=== PATIENT | male | born 1990 | race Caucasian/White ===

== ENCOUNTER 2018-06-08 12:22 | Emergency (ER) | payer OTHER ==
[2018-06-08 12:30] VITALS: BP 129/84
--- NOTE | 2018-06-08 12:50 | EDM.PDOC ---
ED HPI GENERAL MEDICAL PROBLEM - General Chief Complaint: Neck Problem Stated Complaint: neck/shoulder pain Time Seen by Provider: 06/08/18 12:35 Source of Information: Reports: Old Records ([facility] EMR. No paper hospital chart available.), Other ([facility]- first report of injury form) - History of Present Illness INITIAL COMMENTS - FREE TEXT/NARRATIVE: The patient was brought to the emergency room via private automobile by his friend and coworker for evaluation of persistent and somewhat progressive left neck pain with radiation to his left shoulder after a Workmen's Compensation injury, which occurred at about 10:30 a.m. on 05/29/18. Note that the patient was standing on a ladder when he was pulling on a chain pulling it off a track when he felt a strain to his left neck with radiation to his left shoulder. No history of fall from the ladder or other injury at that time. Patient was not evaluated by a physician until this visit, although he did have an appointment with his chiropractor, Raúl Flores in [place], on 05/30 with no apparent x-rays, manipulations, all prescribed medications at that time. Symptoms did improve somewhat initially, however the patient has not been to work since the above injury with no history of injury, etc. He does have some additional mild left arm and hand weakness and paresthesias his fingers with symptoms refractory to OTC Tylenol with last dose of thousand milligrams yesterday evening. He has been using ice packs but no other therapy to this point. He denies any previous history of neck injury or neck complaints. No history of recent headaches, visual changes, diplopia, change in mental status, or other change in neurological status. The patient denies any chest pain/pressure, heart flutter, dizziness, orthostasis, orthopnea, diaphoresis, paresthesias, recent decreased exercise tolerance, or any other anginal-type symptoms. No recent history of abdominal pain, heartburn, nausea, diarrhea, melena, gross hematochezia, or any food intolerance, including fatty foods, etc.. The patient also denies any recent fever, cough, wheezing, dyspnea, etc.. He currently rates his pain at 7/ 10 with symptoms exacerbated by neck movement, cough, etc. Onset: Sudden Onset Date: 06/05/18 Onset Time: 10:30 Duration: Constant, Getting Worse Location: Reports: Neck, Upper Extremity, Left (As above), Radiates to (As above ) Quality: Reports: Sharp Severity: Moderate Improves with: Reports: Rest Worsens with: Reports: Movement Context: Reports: Other (As above) Associated Symptoms: Denies: Confusion, Chest Pain, Cough, Diaphoresis, Fever/ Chills, Headaches, Loss of Appetite, Malaise, Nausea/Vomiting, Seizure, Shortness of Breath, Syncope, Weakness Treatments DAYCARE PROVIDER: Reports: Acetaminophen, Cold Therapy, NSAIDS (Not recently) Neck Pain Score (Numeric/FACES): 7 - Related Data Allergies Allergy/AdvReac Type Severity Reaction Status Date / Time cefaclor [Cefaclor] Allergy UNKNOWN Verified 06/08/18 12:30 Penicillins Allergy UNKNOWN Verified 06/08/18 12:30 Home Meds: Home Meds Fexofenadine [Felicity] 1 tab PO ASDIRECTED PRN 04/26/16 [History] Cyclobenzaprine [Flexeril] 10 mg PO TID PRN #30 tab 06/08/18 [Rx] Past Medical History HEENT History: Reports: Allergic Rhinitis Cardiovascular History: Reports: None Respiratory History: Reports: None Gastrointestinal History: Reports: None Genitourinary History: Reports: None Musculoskeletal History: Reports: Arthritis, Back Pain, Chronic. Denies: Fracture, Gout, Neck Pain, Chronic, RA, SLE Neurological History: Reports: None Psychiatric History: Reports: None Endocrine/Metabolic History: Reports: None Hematologic History: Reports: None Immunologic History: Reports: None Oncologic (Cancer) History: Reports: None Dermatologic History: Reports: None - Infectious Disease History Infectious Disease History: Reports: None - Past Surgical History HEENT Surgical History: Reports: None. Denies: Eye Surgery, Laser Surgery, LASIK, Myringotomy w Tube(s), Naso-Sinus Surgery, Oral Surgery GI Surgical History: Reports: None. Denies: Appendectomy Female Surgical History: Reports: None Male Surgical History: Reports: Circumcision, Other (See Below). Denies: Vasectomy Other Male Surgeries/Procedures: Circumcision as an infant. Social & Family History - Family History Family Medical History: Noncontributory - Tobacco Use Smoking Status *Q: Current Every Day Smoker Tobacco Use Within Last Twelve Months: Cigarettes Years of Tobacco use: 13 Packs/Tins Daily: 1 Used Tobacco, but Quit: No Second Hand Smoke Exposure: No Second Hand Smoke Education Provided: No - Caffeine Use Caffeine Use: Reports: Energy Drinks (2 cans per month), Soda (2 20 ounce bottles per day). Denies: Coffee, Tea - Alcohol Use Alcohol Use History: Yes Days Per Week of Alcohol Use: 0 Number of Drinks Per Day: 2 Number of Drinks Per Day Comment: Usually beer about once per month. No previous DWIs, problems with alcohol abuse, etc. Total Drinks Per Week: 0 Alcohol Use in Last Twelve Months: Yes Alcohol Use Frequency: Rarely - Recreational Drug Use Recreational Drug Use: No Drug Use in Last 12 Months: No Recreational Drug Type: Denies: Amphetamines (Speed), Cocaine, Heroin, Inhalants (Glues, Solvents, Aerosols), LSD (Acid), Marijuana/Hashish, Methamphetamine, Morphine, Oxycodone - Living Situation & Occupation Living situation: Reports: (2018, no children), with Family () Occupation: Employed ([employer]) ED ROS GENERAL - Review of Systems Review Of Systems: ROS reveals no pertinent complaints other than HPI. ED EXAM, GENERAL - Physical Exam Exam: See Below Exam Limited By: No Limitations General Appearance: Alert, WD/WN, No Apparent Distress Head: Atraumatic, Normocephalic. No: Facial Swelling, Facial Tenderness, Sinus Tenderness Neck: Limited Range of Motion (Secondary to left-sided muscle spasms with mild localized palpation pain), Tender Lateral (As above). No: Lymphadenopathy (L), Lymphadenopathy (R), Tender Midline, Thyromegaly Respiratory/Chest: No Respiratory Distress, Lungs Clear, Normal Breath Sounds, No Accessory Muscle Use, Chest Non-Tender. No: Pleural Rub, Retractions Cardiovascular: Normal Peripheral Pulses, Regular Rate, Rhythm, No Edema, No Gallop, No JVD, No Murmur, No Rub. No: Gallop/S3, Gallop/S4, Friction Rub Peripheral Pulses: 2+: Radial (L), Radial (R) GI/Abdominal: Normal Bowel Sounds, Soft, Non-Tender, No Organomegaly, No Distention, No Abnormal Bruit, No Mass. No: Pelvis Stable, Guarding (Male) Exam: Deferred Rectal (Males) Exam: Deferred Back Exam: Normal Inspection, Full Range of Motion. No: CVA Tenderness (L), CVA Tenderness (R), Muscle Spasm Extremities: Normal Inspection, Normal Range of Motion, Non-Tender, No Pedal Edema, Normal Capillary Refill. No: Rsuty's Sign Neurological: Alert, Oriented, CN II-XII Intact, Normal Cognition, Normal Gait, Other (No true left arm weakness with borderline questionable finger weakness of all of his left fingers based on finger thumb test) Psychiatric: Normal Affect, Normal Mood Skin Exam: Tattoo(s) (Multiple). No: Diaphoretic, Wound/Incision Lymphatic: No Adenopathy Course - Vital Signs Last Recorded V/S: Last Vital Signs Temp 36.5 C 06/08/18 12:22 Pulse 100 06/08/18 12:22 Resp 20 06/08/18 12:22 BP 129/84 06/08/18 12:22 Pulse Ox 97 06/08/18 12:22 Vital Signs - 24 hr 06/08/18 12:22 Temperature [ 36.5 C Oral] Pulse, 100 Peripheral [ Right Pulse Oximetry] Respiratory 20 Rate Blood Pressure 129/84 [Right Upper Arm] O2 Sat by Pulse 97 Oximetry - Orders/Labs/Meds Orders: Active Orders 24 hr Category Date Time Status Cervical Spine w Flex and Ext [CR] Stat Exams 06/08/18 12:51 Taken Obtain Past Medical Record [OM.PC] Routine Oth 06/08/18 12:50 Active Labs: None Meds: None - Radiology Interpretation Free Text/Narrative:: X-rays of the cervical spine, complete including flexion and extension views, shows evidence of moderate decreased cervical lordosis but no significant arthritic changes, subluxation, fracture, etc. Note some suboptimal views with extension Departure - Departure Time of Disposition: 13:20 Disposition: Home, Self-Care 01 Condition: Good Clinical Impression: Neck pain Osteoarthritis Qualifiers: Osteoarthritis location: multiple joints Osteoarthritis type: primary Qualified Code(s): M15.0 - Primary generalized (osteo)arthritis Allergic rhinitis Qualifiers: Allergic rhinitis trigger: unspecified Allergic rhinitis seasonality: unspecified Qualified Code(s): J30.9 - Allergic rhinitis, unspecified - Discharge Information *PRESCRIPTION DRUG MONITORING PROGRAM REVIEWED*: Not Applicable *COPY OF PRESCRIPTION DRUG MONITORING REPORT IN PATIENT MERVAT: Not Applicable Prescriptions: Cyclobenzaprine [Flexeril] 10 mg PO TID PRN #30 tab PRN Reason: Muscle Spasm Instructions: Cervical Sprain, [id number] Referrals: PCP,Unknown [Ordering Only Provider] - Forms: ED Department Discharge, ED Return to Work/School Form Additional Instructions: 1. Followup with your regular provider in 2 days as directed. Possible revision of work excuse at that time. Bring these discharge instructions with you to that visit. 2. Tylenol 650 mg by mouth every 4 hours and/or OTC ibuprofen 2-3 tabs by mouth every 6 hours with food as directed./needed. 3. BenGay or equivalent, heating pad, and/or ice packs as directed. 4. Immediately after this visit verify that your cellular telephone's voicemail has been activated and is empty. Also verify that your home telephone 's answering machine is operating properly and has space to receive messages. Note that it is sometimes necessary for us to be able to contact you at a later date to discuss your medical care. 5. Work excuse- See Form 6. Stop all tobacco use ANGELA as directed/per provided information and consider contacting [employer]uit [employer]ne, etc.. 7. You may go to your chiropractic appointments as scheduled. 8. Discontinue all energy drinks ANGELA as discussed. - Problem List & Annotations (1) Neck pain SNOMED Code(s): 63766709 Code(s): M54.2 - CERVICALGIA Status: Acute Priority: High Onset Date: 06/05/18 Annotation/Comment:: Workmen's Compensation forms and work excuse were completed with initial [employer] first injury report of injury also reviewed today. Close follow-up with regular provider as per discharge instructions with symptomatic relief for now. He apparently was provided a work excuse by his chiropractor with this work excuse extended until his recommended follow-up with his regular provider in 2 days. Note additional Flexeril therapy with sedation, etc. precautions given. Consider CT scan of the cervical spine in the next 10-14 days depending on his clinical course. (2) Osteoarthritis SNOMED Code(s): 919774025 Code(s): M19.90 - UNSPECIFIED OSTEOARTHRITIS, UNSPECIFIED SITE Status: Chronic Priority: Medium Annotation/Comment:: History of distant low back pain with arthritis otherwise stable Qualifiers: Osteoarthritis location: multiple joints Osteoarthritis type: primary Qualified Code(s): M15.0 - Primary generalized (osteo)arthritis (3) Allergic rhinitis SNOMED Code(s): 05216655 Code(s): J30.9 - ALLERGIC RHINITIS, UNSPECIFIED Status: Chronic Priority : Medium Annotation/Comment:: Stable by history Qualifiers: Allergic rhinitis trigger: unspecified Allergic rhinitis seasonality: unspecified Qualified Code(s): J30.9 - Allergic rhinitis, unspecified - Problem List Review Problem List Initiated/Reviewed/Updated: Yes - My Orders Last 24 Hours: My Active Orders 06/08/18 12:50 Obtain Past Medical Record [OM.PC] Routine 06/08/18 12:51 Cervical Spine w Flex and Ext [CR] Stat - Assessment/Plan Last 24 Hours: My Active Orders 06/08/18 12:50 Obtain Past Medical Record [OM.PC] Routine 06/08/18 12:51 Cervical Spine w Flex and Ext [CR] Stat Assessment:: As above Plan: As above
== END 2018-06-08 13:20 | disposition home or self-care (01) ==
LOC: LL.ED 12:22
DX: M15.0 Primary generalized (osteo)arthritis (principal); M54.2 Cervicalgia; J30.9 Allergic rhinitis, unspecified; F17.210 Nicotine dependence, cigarettes, uncomplicated; Z71.6 Tobacco abuse counseling
CPT/HCPCS: 72052; 99283

== ENCOUNTER 2018-12-16 07:31 | Emergency (ER) | payer BC ==
[2018-12-16 07:36] VITALS: BP 127/86
[2018-12-16] MEDS ORDERED: Tetracaine HCl/PF 0.5% 4 ML Bottle EYEBOTH ONE (08:00)
--- NOTE | 2018-12-16 08:00 | EDM.PDOC ---
ED HPI GENERAL MEDICAL PROBLEM - General Chief Complaint: ENT Problem Stated Complaint: flash burn at eyes Time Seen by Provider: 12/16/18 07:50 Source of Information: Reports: Patient, Family (), Old Records ([facility] EMR. 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 Patient did take ibuprofen prior to arrival to this facility as below. The patient denies any chest pain/pressure, heart flutter, dizziness, orthostasis, orthopnea, diaphoresis, paresthesias, recent decreased exercise tolerance, or any other anginal-type symptoms. No recent history of abdominal pain, heartburn, nausea, diarrhea, melena, gross hematochezia, or any food intolerance, including fatty foods, etc.. The patient also denies any recent fever, cough, wheezing, dyspnea, etc.. Onset: Today, Gradual Onset Date: 12/16/18 Onset Time: 00:00 Duration: Constant, Getting Worse Location: Reports: Head (Bilateral eye pain). Denies: Face, Neck, Chest, Abdomen, Back, Pelvis, Upper Extremity, Left, Upper Extremity, Right, Radiates to Quality: Reports: Burning, Same as Previous Episode, Sharp Severity: Moderate Improves with: Reports: None Worsens with: Reports: None Context: Reports: Other (As above). 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: took ibuprofen 600 mg at 0630 Bilateral Eye Pain Score (Numeric/FACES): 6 - Related Data Allergies Allergy/AdvReac Type Severity Reaction Status Date / Time cefaclor [Cefaclor] Allergy UNKNOWN Verified 12/16/18 07:44 Penicillins Allergy UNKNOWN Verified 12/16/18 07:44 Home Meds: Home Meds Fexofenadine [Felicity] 1 tab PO ASDIRECTED PRN 07/10/16 [History] Orphenadrine [Norflex] 1 tab PO BID PRN 10/03/18 [History] Polymyxin B Sulf/Trimethoprim [Polytrim Eye Drops] 2 drop EYEBOTH QID #1 bottle 12/16/18 [Rx] Varenicline Tartrate [Chantix] 1 mg PO BID 12/16/18 [History] Past Medical History HEENT History: Reports: Allergic Rhinitis, Other (See Below). 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 Cardiovascular History: Reports: None Respiratory History: Reports: None Gastrointestinal History: Reports: None Genitourinary History: Reports: None Musculoskeletal History: Reports: Arthritis, Back Pain, Chronic, Neck Pain, Chronic, Osteoarthritis, Other (See Below). Denies: Fracture, Gout, RA, SLE Other Musculoskeletal History: C5 disc herniation by MRI as below. Neurological History: Reports: None Psychiatric History: Reports: None Endocrine/Metabolic History: Reports: None Hematologic History: Reports: None Immunologic History: Reports: None Oncologic (Cancer) History: Reports: None Dermatologic History: Reports: None - Infectious Disease History Infectious Disease History: Reports: None - Past Surgical History Head Surgeries/Procedures: Reports: None HEENT Surgical History: Reports: Oral Surgery, Other (See Below). Denies: Eye Surgery, Laser Surgery, LASIK, Myringotomy w Tube(s), Naso-Sinus Surgery Other HEENT Surgeries/Procedures: Multiple teeth extractions. GI Surgical History: Reports: None. Denies: Appendectomy Male Surgical History: Reports: Circumcision, Other (See Below). Denies: Vasectomy Other Male Surgeries/Procedures: Circumcision as an . Social & Family History - Family History Family Medical History: Noncontributory - Tobacco Use Smoking Status *Q: Current Every Day Smoker Tobacco Use Within Last Twelve Months: Cigarettes Years of Tobacco use: 13 Packs/Tins Daily: 0.5 Packs/Tins Daily Comment: He started smoking at age 15 with maximum use of one pack per day. Used Tobacco, but Quit: No Smoking Cessation Information Provided To Patient: Yes Second Hand Smoke Exposure: No Second Hand Smoke Education Provided: No - Caffeine Use Caffeine Use: Reports: Soda (2 sodas per day). Denies: Coffee, Tea - Alcohol Use Alcohol Use History: Yes Days Per Week of Alcohol Use: 0 Number of Drinks Per Day: 2 Number of Drinks Per Day Comment: Usually beer 2 times per month. No previous DWIs, problems with alcohol abuse, etc. Total Drinks Per Week: 0 Alcohol Use in Last Twelve Months: Yes - Recreational Drug Use Recreational Drug Use: No Drug Use in Last 12 Months: No Recreational Drug Type: Denies: Amphetamines (Speed), Cocaine, Heroin, Inhalants (Glues, Solvents, Aerosols), LSD (Acid), Marijuana/Hashish, Methamphetamine, Morphine, Oxycodone - Sexual History Sexual History: Reports: Sexually Active - Living Situation & Occupation Living situation: Reports: (2018, no children), with Family () Occupation: Employed ([employer]) ED ROS GENERAL - Review of Systems Review Of Systems: ROS reveals no pertinent complaints other than HPI. ED EXAM GENERAL W FULL EYE - Physical Exam Exam: See Below Exam Limited By: No Limitations General Appearance: Alert, WD/WN, No Apparent Distress, Anxious (Mild) Eye Exam: Bilateral Eye: Conjunctival Injection (Mild to moderate bilateral with no foreign body noted), EOMI, Normal Fundi Visual Acuity (R) 20/: 15 Visual Acuity (L) 20/: 20 With Correction: No Eyelids: Bilateral: Normal Appearance Conjunctiva & Sclera: Bilateral: Injected (Mild to moderate bilateral) Cornea Exam: Bilateral: Examined with Flourescein (Minimal inflammation with no ulceration) Extraocular Movements: Bilateral: Intact Pupils: Normal Accommodation Pupillary Size: Bilateral: 6 mm Pupillary Reaction: Bilateral: Brisk Anterior Chamber: Bilateral: Normal Appearance Posterior Chamber: Bilateral: Normal Funduscopic Ears: Normal External Exam, Normal Canal, Hearing Grossly Normal, Normal TMs Nose: Clear Rhinorrhea (Mild bilateral) Throat/Mouth: Normal Lips, Normal Gums, Normal Oropharynx, Normal Voice, No Airway Compromise. No: Normal Teeth (Multiple missing teeth, chipped teeth, and caries with no drainage or abscesses), Dysphagia Head: Atraumatic, Normocephalic. No: Facial Swelling, Facial Tenderness, Sinus Tenderness Neck: Normal Inspection, Supple, Non-Tender, Full Range of Motion. No: Lymphadenopathy (L), Lymphadenopathy (R), Thyromegaly Respiratory/Chest: No Respiratory Distress, Lungs Clear, Normal Breath Sounds, No Accessory Muscle Use, Chest Non-Tender. No: Pleural Rub, Retractions Cardiovascular: Normal Peripheral Pulses, Regular Rate, Rhythm, No Edema, No Gallop, No JVD, No Murmur, No Rub. No: Gallop/S3, Gallop/S4, Friction Rub GI/Abdominal: Normal Bowel Sounds, Soft, Non-Tender, No Organomegaly, No Distention, No Abnormal Bruit, No Mass. No: Guarding (Male) Exam: Deferred Rectal (Males) Exam: Deferred Back Exam: Normal Inspection, Full Range of Motion. No: CVA Tenderness (L), CVA Tenderness (R), Muscle Spasm Extremities: Normal Inspection, Normal Range of Motion, Non-Tender, No Pedal Edema, Normal Capillary Refill. No: Rusty's Sign Neurological: Alert, Oriented, CN II-XII Intact, Normal Cognition, Normal Gait, No Motor/Sensory Deficits Psychiatric: Anxious (Mild). No: Depressed Mood Skin Exam: Warm, Dry, Intact, Normal Color, No Rash, Tattoo(s) (Multiple). No: Diaphoretic, Wound/Incision Lymphatic: No Adenopathy ED EYE w/ Add Procedure - Eye Procedure Alcaine Drops Administered: No Eye Irrigated w/ Saline (ccs): 30 (bilateral) Progress: Lid eversion exam conducted bilaterally. Course - Vital Signs Last Recorded V/S: Last Vital Signs Temp 36.9 C 12/16/18 07:31 Pulse 91 12/16/18 07:31 Resp 16 12/16/18 07:31 BP 127/86 12/16/18 07:31 Pulse Ox 99 12/16/18 07:31 Vital Signs - 24 hr 12/16/18 07:31 Temperature [ 36.9 C Temporal] Pulse, 91 Peripheral [ Right] Respiratory 16 Rate Blood Pressure 127/86 [Right] O2 Sat by Pulse 99 Oximetry - Orders/Labs/Meds Orders: Active Orders 24 hr Category Date Time Status Vaccines to be Administered [RC] PER UNIT ROUTINE Care 12/16/18 08:01 Active Obtain Past Medical Record [OM.PC] Routine Oth 12/16/18 08:00 Active Labs: None Meds: Medications Discontinued Medications Generic Name Dose Route Start Last Admin Trade Name Freq PRN Reason Stop Dose Admin Balanced Salt Solution 30 ml 12/16/18 08:01 12/16/18 08:17 Eye Stream Eye Rinse EYELF 12/16/18 08:02 30 ml ONETIME ONE Administration Balanced Salt Solution 30 ml 12/16/18 08:02 12/16/18 08:18 Eye Stream Eye Rinse EYERT 12/16/18 08:03 30 ml ONETIME ONE Administration Diphtheria/Tetanus/Acell Pertussis 0.5 ml 12/16/18 08:01 12/16/18 08:48 Adacel IM 12/16/18 08:02 0.5 ml .ONCE ONE Administration Tetracaine HCl 1 ml 12/16/18 08:00 12/16/18 08:16 Tetracaine 0.5% Steri-Unit Angelica EYEBOTH 12/16/18 08:01 1 ml ASDIRECTED ONE Administration - Radiology Interpretation Free Text/Narrative:: None Departure - Departure Time of Disposition: 09:05 Disposition: Home, Self-Care 01 Condition: Good Clinical Impression: Welders' keratitis of both eyes, Caries Allergic rhinitis Qualifiers: Allergic rhinitis trigger: unspecified Allergic rhinitis seasonality: unspecified Qualified Code(s): J30.9 - Allergic rhinitis, unspecified Osteoarthritis Qualifiers: Osteoarthritis location: multiple joints Osteoarthritis type: primary Qualified Code(s): M15.0 - Primary generalized (osteo)arthritis - Discharge Information *PRESCRIPTION DRUG MONITORING PROGRAM REVIEWED*: Not Applicable *COPY OF PRESCRIPTION DRUG MONITORING REPORT IN PATIENT MERVAT: Not Applicable Prescriptions: Polymyxin B Sulf/Trimethoprim [Polytrim Eye Drops] 2 drop EYEBOTH QID #1 bottle Instructions: Ultraviolet Keratitis, [id number] Referrals: Aletha Scales NP [Primary Care Provider] - Forms: ED Department Discharge, ED Return to Work/School Form Additional Instructions: 1. Follow up with your regular provider in 3-5 days as needed, if symptoms persist. Bring these discharge instructions with you to that visit.. 2. Tylenol 650 mg by mouth every 4 hours and/or OTC ibuprofen 2-3 tabs by mouth every 6 hours with food as directed./needed. You may stagger these medications for 48-72 hours only, which essentially means that you are receiving a pain medication about every 2 hours. 3. Polytrim eyedrops 2 drops in the affected eye 4 times a day with every 2 hours as needed for at least 5 days AND until 48 hours after complete resolution of symptoms as directed. You may use additional OTC artificial tears as needed as per label instructions. 4. Wear safety shield, etc. at all times when welding, etc. as discussed 5. Stop all tobacco use ANGELA as directed/per provided information and consider contacting Quit LIne, etc.. 6. Immediately after this visit verify that your cellular telephone's voicemail has been activated and is empty. Also verify that your home telephone 's answering machine is operating properly and has space to receive messages. Note that it is sometimes necessary for us to be able to contact you at a later date to discuss your medical care. 7. Please remember that we are ALWAYS here for you and want to answer any questions you may have. Feel free to call the hospital any time and we call you back ANGELA. 8. Follow-up with your dentist ANGELA as discussed. - Problem List & Annotations (1) Welders' keratitis of both eyes SNOMED Code(s): 7284580 Code(s): H16.133 - PHOTOKERATITIS, BILATERAL Status: Acute Priority: High Current Visit: No Onset Date: 12/16/18 Annotation/Comment:: Compliance with tig welder shield strongly encouraged. DTaP given. Follow-up when necessary. Work excuse provided both for the patient and his . Note that patient does have a previous history of similar injury on 04/26/16 with tetanus booster not updated at that time. Last tetanus booster on 10/18/98, which is verified by the ER nurse. (2) Caries SNOMED Code(s): 37334229 Code(s): K02.9 - DENTAL CARIES, UNSPECIFIED Status: Chronic Priority: Medium Current Visit: No Annotation/Comment:: He plans to see his dentist next week with compliance at this point strongly encouraged. ANGELA. (3) Allergic rhinitis SNOMED Code(s): 01725863 Code(s): J30.9 - ALLERGIC RHINITIS, UNSPECIFIED Status: Chronic Priority : Medium Current Visit: No Annotation/Comment:: Stable by history Qualifiers: Allergic rhinitis trigger: unspecified Allergic rhinitis seasonality: unspecified Qualified Code(s): J30.9 - Allergic rhinitis, unspecified (4) Osteoarthritis SNOMED Code(s): 019064524 Code(s): M19.90 - UNSPECIFIED OSTEOARTHRITIS, UNSPECIFIED SITE Status: Chronic Priority: Medium Current Visit: No Annotation/Comment:: History of C5 disc herniation with apparent upcoming neck surgery. His arthritis is otherwise stable. Qualifiers: Osteoarthritis location: multiple joints Osteoarthritis type: primary Qualified Code(s): M15.0 - Primary generalized (osteo)arthritis - Problem List Review Problem List Initiated/Reviewed/Updated: Yes - My Orders Last 24 Hours: My Active Orders 12/16/18 08:00 Obtain Past Medical Record [OM.PC] Routine 12/16/18 08:01 Vaccines to be Administered [RC] PER UNIT ROUTINE - Assessment/Plan Last 24 Hours: My Active Orders 12/16/18 08:00 Obtain Past Medical Record [OM.PC] Routine 12/16/18 08:01 Vaccines to be Administered [RC] PER UNIT ROUTINE Assessment:: As above Plan: As above. Extensive precautions were given to the patient and his , who are in agreement with the treatment plan. See Patient Instructions for further treatment and plan.
[2018-12-16] MEDS ORDERED: Balanced Salt Solution Ophth Irrig 30 ML Bottle EYELF ONE (08:01)
[2018-12-16] MEDS ORDERED: Diphtheria,Pertussis(Acell),Tetanus Vaccine 0.5 ML SDV IM ONE (08:01)
[2018-12-16] MEDS ORDERED: Balanced Salt Solution Ophth Irrig 30 ML Bottle EYERT ONE (08:02)
== END 2018-12-16 09:05 | disposition home or self-care (01) ==
LOC: LL.ED 07:31
DX: H16.133 Photokeratitis, bilateral (principal); J30.9 Allergic rhinitis, unspecified; M15.0 Primary generalized (osteo)arthritis; F17.210 Nicotine dependence, cigarettes, uncomplicated; W89.8XXA Exposure to other man-made visible and ultraviolet light, initial encounter; Z88.0 Allergy status to penicillin; Z88.8 Allergy status to other drugs, medicaments and biological substances; Z79.899 Other long term (current) drug therapy; Z23 Encounter for immunization
CPT/HCPCS: 90471; 90715; 99283

== ENCOUNTER → 2019-09-11 | Outpatient (CLI) | payer OTHER | LOC: LL.MRI 12:58 | PROVIDERS: ATTEND Nurse Practitioner Family | DX: M47.22 Other spondylosis with radiculopathy, cervical region (principal); M48.02 Spinal stenosis, cervical region | CPT/HCPCS: 72141 ==

== ENCOUNTER 2021-06-18 19:16 | Emergency (ER) | payer BC, OTHER ==
[2021-06-18 19:29] VITALS: BP 131/74; PULSE 102
[2021-06-18 20:11] LABS: ANION GAP 11.4 meq/L (7-15); CHLORIDE,CL 105 mmol/L (98-107); SODIUM,NA 143 mmol/L (136-145)
[2021-06-18] MEDS: Albuterol/Ipratropium 3.0-0.5 MG/3 ML Neb Soln NEB ONE (20:36)
--- NOTE | 2021-06-18 20:43 | EDM.PDOC ---
ED HPI GENERAL MEDICAL PROBLEM - General Chief Complaint: Fever Stated Complaint: fever, cough Time Seen by Provider: 06/18/21 20:00 Source of Information: Reports: Patient History Limitations: Reports: No Limitations - History of Present Illness INITIAL COMMENTS - FREE TEXT/NARRATIVE: Patient comes emergency department today with complaints of fever cough and congestion in his chest. This patient was seen in the clinic a couple of days ago and was diagnosed with bronchitis as well as sinus infection. He was placed on a Zithromax regimen. He still continues to have what he relates as a fever of 99.0. No chills. He continues to have a dry hacking cough. He is a smoker. He has no sinus congestion drainage pressure or irritation. He has no sore throat or difficulty breathing or swallowing. He just feels like he constantly has to cough. He has some sore muscles throughout his chest whenever he is coughing. He has no constant pain in his chest. No palpitations weakness dizziness lightheadedness. No abdominal pain nausea or vomiting. No hematuria dysuria urinary frequency. He has not Covid vaccinated. Headache Pain Score (Numeric/FACES): 4 - Related Data Allergies Allergy/AdvReac Type Severity Reaction Status Date / Time cefaclor [Cefaclor] Allergy UNKNOWN Verified 06/18/21 19:17 Penicillins Allergy UNKNOWN Verified 06/18/21 19:17 Home Meds: Home Meds Fexofenadine [Felicity] 1 tab PO ASDIRECTED PRN 04/26/16 [History] Orphenadrine [Norflex] 1 tab PO BID PRN 10/03/18 [History] Polymyxin B Sulf/Trimethoprim [Polytrim Eye Drops] 2 drop EYEBOTH QID #1 bottle 12/16/18 [Rx] predniSONE [Prednisone] 40 mg PO DAILY 4 Days #8 tablet 06/18/21 [Rx] Past Medical History HEENT History: Reports: Allergic Rhinitis, Other (See Below) 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 Cardiovascular History: Reports: None Respiratory History: Reports: None Gastrointestinal History: Reports: None Genitourinary History: Reports: None Musculoskeletal History: Reports: Arthritis, Back Pain, Chronic, Neck Pain, Chronic, Osteoarthritis, Other (See Below) Other Musculoskeletal History: C5 disc herniation by MRI as below. Neurological History: Reports: None Psychiatric History: Reports: None Endocrine/Metabolic History: Reports: None Hematologic History: Reports: None Immunologic History: Reports: None Oncologic (Cancer) History: Reports: None Dermatologic History: Reports: None - Infectious Disease History Infectious Disease History: Reports: None - Past Surgical History Head Surgeries/Procedures: Reports: None HEENT Surgical History: Reports: Oral Surgery, Other (See Below) Other HEENT Surgeries/Procedures: Multiple teeth extractions. GI Surgical History: Reports: None Male Surgical History: Reports: Circumcision, Other (See Below) Other Male Surgeries/Procedures: Circumcision as an . Social & Family History - Family History Family Medical History: No Pertinent Family History - Tobacco Use Tobacco Use Status *Q: Current Every Day Tobacco User Years of Tobacco use: 14 Packs/Tins Daily: 0.5 - Caffeine Use Caffeine Use: Reports: Soda - Recreational Drug Use Recreational Drug Use: No - Sexual History Sexual History: Reports: Sexually Active - Living Situation & Occupation Living situation: Reports: (2018, no children), with Family () Occupation: Employed ([employer]) ED ROS GENERAL - Review of Systems Review Of Systems: Comprehensive ROS is negative, except as noted in HPI. ED EXAM, GENERAL - Physical Exam Exam: See Below Exam Limited By: No Limitations General Appearance: Alert, WD/WN, No Apparent Distress Ears: Normal External Exam, Normal TMs Nose: No Blood, Nasal Swelling (He has some mild nasal swelling and erythema but no injection or drainage) Throat/Mouth: Normal Inspection, Normal Lips, Normal Oropharynx, Normal Voice Head: Atraumatic, Normocephalic Neck: Normal Inspection, Supple, Non-Tender, Full Range of Motion Respiratory/Chest: No Respiratory Distress, Lungs Clear, Normal Breath Sounds, No Accessory Muscle Use, Chest Non-Tender Cardiovascular: Normal Peripheral Pulses, Regular Rate, Rhythm Peripheral Pulses: 2+: Radial (L), Radial (R), Posterior Tibial (L), Posterior Tibial (R), Dorsalis Pedis (L), Dorsalis Pedis (R) GI/Abdominal: Normal Bowel Sounds, Soft (Male) Exam: Deferred Rectal (Males) Exam: Deferred Back Exam: Normal Inspection Extremities: Normal Inspection, Normal Range of Motion, Non-Tender, No Pedal Edema, Normal Capillary Refill Neurological: Alert, Oriented, CN II-XII Intact, Normal Cognition, No Motor/Sensory Deficits Psychiatric: Normal Affect, Normal Mood Skin Exam: Warm, Dry, Intact, Normal Color, No Rash Course - Vital Signs Last Recorded V/S: Last Vital Signs Temp 98.1 F 06/18/21 19:27 Pulse 102 H 06/18/21 19:27 Resp 18 06/18/21 19:27 BP 131/74 06/18/21 19:27 Pulse Ox 98 06/18/21 19:27 - Orders/Labs/Meds Orders: Active Orders 24 hr Category Date Time Status Chest 2V [CR] Urgent Exams 06/18/21 19:34 Taken PROCALCITONIN [REF] Stat Lab 06/18/21 19:50 Received Labs: Laboratory Tests 06/18/21 06/18/21 06/18/21 Range/Units 19:28 19:50 19:50 WBC 8.1 (4.0-10.2) K/uL RBC 5.22 (4.33-5.41) M/uL Hgb 16.2 (13.1-16.8) g/dL Hct 46.5 (39.0-49.0) % MCV 89.1 (84.0-98.0) fL MCH 31.0 (28.2-33.3) pg MCHC 34.8 (31.7-36.0) g/dL RDW 14.6 H (11.2-14.1) % Plt Count 312 (150-350) K/uL Neut % (Auto) 53.9 (45.0-80.0) % Lymph % (Auto) 29.9 (10.0-50.0) % [place] % (Auto) 11.3 (2.0-14.0) % Eos % (Auto) 4.7 (0.0-5.0) % Baso % (Auto) 0.2 (0.0-2.0) % Neut # (Auto) 4.34 (1.40-7.00) K/uL Lymph # (Auto) 2.41 (0.50-3.50) K/uL [place] # (Auto) 0.91 (0.00-1.00) K/uL Eos # (Auto) 0.38 (0.00-0.50) K/uL Baso # (Auto) 0.02 (0.00-0.20) K/uL Sodium 143 (136-145) mmol/L Potassium 4.0 (3.5-5.1) mmol/L Chloride 105 (98-107) mmol/L Carbon Dioxide 26.6 (21.0-32.0) mmol/L Anion Gap 11.4 (7-15) meq/L BUN 11 (7-18) mg/dL Creatinine 1.23 H (0.51-1.17) mg/dL Est Cr Clr Drug Dosing 77.44 mL/min Estimated GFR (MDRD) > 60 mL/min Glucose 100 H (70-99) mg/dL Lactic Acid (0.4-2.0) mmol/L Calcium 9.2 (8.5-10.1) mg/dL Total Bilirubin 0.3 (0.2-1.0) mg/dL AST 11 L (15-37) U/L ALT 31 (12-78) U/L Alkaline Phosphatase 82 (46-116) IU/L C-Reactive Protein < 0.2 (<=0.9) mg/dL Total Protein 7.6 (6.4-8.2) g/dL Albumin 4.0 (3.4-5.0) g/dL SARS-CoV-2 RNA (BRIJESH) Negative (NEGATIVE) 06/18/21 Range/Units 19:50 WBC (4.0-10.2) K/uL RBC (4.33-5.41) M/uL Hgb (13.1-16.8) g/dL Hct (39.0-49.0) % MCV (84.0-98.0) fL MCH (28.2-33.3) pg MCHC (31.7-36.0) g/dL RDW (11.2-14.1) % Plt Count (150-350) K/uL Neut % (Auto) (45.0-80.0) % Lymph % (Auto) (10.0-50.0) % [place] % (Auto) (2.0-14.0) % Eos % (Auto) (0.0-5.0) % Baso % (Auto) (0.0-2.0) % Neut # (Auto) (1.40-7.00) K/uL Lymph # (Auto) (0.50-3.50) K/uL [place] # (Auto) (0.00-1.00) K/uL Eos # (Auto) (0.00-0.50) K/uL Baso # (Auto) (0.00-0.20) K/uL Sodium (136-145) mmol/L Potassium (3.5-5.1) mmol/L Chloride (98-107) mmol/L Carbon Dioxide (21.0-32.0) mmol/L Anion Gap (7-15) meq/L BUN (7-18) mg/dL Creatinine (0.51-1.17) mg/dL Est Cr Clr Drug Dosing mL/min Estimated GFR (MDRD) mL/min Glucose (70-99) mg/dL Lactic Acid 0.5 (0.4-2.0) mmol/L Calcium (8.5-10.1) mg/dL Total Bilirubin (0.2-1.0) mg/dL AST (15-37) U/L ALT (12-78) U/L Alkaline Phosphatase (46-116) IU/L C-Reactive Protein (<=0.9) mg/dL Total Protein (6.4-8.2) g/dL Albumin (3.4-5.0) g/dL SARS-CoV-2 RNA (BRIJESH) (NEGATIVE) Meds: Medications Discontinued Medications Generic Name Dose Route Start Last Admin Trade Name Freq PRN Reason Stop Dose Admin Albuterol/Ipratropium 3 ml 06/18/21 19:35 06/18/21 20:36 Albuterol/Ipratropium 3.0-0.5 Mg/3 Ml Neb Soln NEB 06/18/21 19:36 3 ml ONETIME ONE Administration Prednisone 40 mg 06/18/21 20:43 06/18/21 21:01 Prednisone 20 Mg Tab PO 06/18/21 20:44 40 mg ONETIME ONE Administration - Radiology Interpretation Free Text/Narrative:: Chest x-ray per radiology shows interstitial markings are prominent with bronchial wall cuffing. No other suggestion of acute disease was identified. Mild scoliosis. - Re-Assessments/Exams Free Text/Narrative Re-Assessment/Exam: Patient's laboratory evaluation is rather unremarkable. He does have a mild elevation in his creatinine 1.2. His white blood cell count is normal. C- reactive protein is less than 0.2. His Covid is negative. The patient is in no distress. He did receive a DuoNeb nebulizer which did improve his cough as well as his tightness in his chest. I relayed the rather normal work-up of his chest x-ray and his laboratory evaluation. He can continue the Zithromax if he would like although Zithromax has poor penetration into the sinuses and he does not meet criteria for acute bacterial rhinosinusitis treatment. Bronchitis is typically a viral pathogen. Symptomatic management is the best course of action for bronchitis. We will send him home with prednisone as well as albuterol inhaler. Discharge directions as below are explained to the patient he was comfortable this plan his questions are answered. Departure - Departure Time of Disposition: 20:38 Disposition: Home, Self-Care 01 Clinical Impression: Bronchitis - Discharge Information Prescriptions: predniSONE [Prednisone] 40 mg PO DAILY 4 Days #8 tablet Instructions: Acute Bronchitis, Adult, [id number] Referrals: Aletha Scales NP [Primary Care Provider] - Forms: ED Department Discharge Additional Instructions: Make sure and drink plenty of fluids the next few days. If you are not urinating every 2 hours you are not drinking enough fluids. Tylenol and or Ibuprofen as needed for pain. Albuterol inhaler, 2 puffs every 4 hrs as needed for coughing shortness of breath dispensed from the ED. Prednisone 40mg daily for the next 5 days. First dose given in the ED and RX sent to your pharmacy. Return to the ED if new or worsening symptoms. Follow up with PCP in the next week if not improving sooner if worse. Consider quitting smoking as well. - My Orders Last 24 Hours: My Active Orders 06/18/21 19:34 Chest 2V [CR] Urgent 06/18/21 19:50 PROCALCITONIN [REF] Stat - Assessment/Plan Last 24 Hours: My Active Orders 06/18/21 19:34 Chest 2V [CR] Urgent 06/18/21 19:50 PROCALCITONIN [REF] Stat
[2021-06-18] MEDS: predniSONE 20 MG Tab PO ONE (21:01)
== END 2021-06-18 20:55 | disposition home or self-care (01) ==
LOC: LL.ED 19:16
DX: J40 Bronchitis, not specified as acute or chronic (principal); Z88.0 Allergy status to penicillin; Z88.8 Allergy status to other drugs, medicaments and biological substances; Z72.0 Tobacco use; Z20.822 Contact with and (suspected) exposure to COVID-19
CPT/HCPCS: 36415; 71046; 80053; 83605; 84145; 85025; 86140; 94640; 99283; 99284-25; J7512; J7620-GY; U0002

== ENCOUNTER 2022-07-18 20:05 | Emergency (ER) | payer BC ==
[2022-07-18 20:14] VITALS: BP 143/99; PULSE 103
[2022-07-18] MEDS ORDERED: Bacitracin Oint 1 GM U/D Packet ONE (20:46)
== END 2022-07-18 21:31 | disposition home or self-care (01) ==
LOC: LL.ED 20:05
DX: S62.001A Unspecified fracture of navicular [scaphoid] bone of right wrist, initial encounter for closed fracture (principal); F17.210 Nicotine dependence, cigarettes, uncomplicated; Z88.1 Allergy status to other antibiotic agents; Z88.0 Allergy status to penicillin; Z79.899 Other long term (current) drug therapy; W23.1XXA Caught, crushed, jammed, or pinched between stationary objects, initial encounter
CPT/HCPCS: 29125; 73130-RT; 99283

== ENCOUNTER 2023-05-14 19:00 | Emergency (ER) | payer BC ==
[2023-05-14 19:07] VITALS: BP 127/89; PULSE 90
[2023-05-14] MEDS: Tranexamic Acid 1,000 MG/10 ML Vial TOP ONE (19:39)
== END 2023-05-14 19:45 | disposition home or self-care (01) ==
LOC: LL.ED 19:00
DX: S01.00XA Unspecified open wound of scalp, initial encounter (principal); L98.9 Disorder of the skin and subcutaneous tissue, unspecified; Z72.0 Tobacco use; Z88.0 Allergy status to penicillin; Z88.1 Allergy status to other antibiotic agents
CPT/HCPCS: 99283; J3490